=== PATIENT | male | born 1990 | race Caucasian/White ===

== ENCOUNTER 2019-07-25 04:47 | Emergency (ER) | payer OTHER ==
[~2019-07-25] VITALS: Ht 175.3 cm; Wt 93.0 kg
[2019-07-25 04:53] VITALS: Ht 175.3 cm; Wt 93.0 kg
[2019-07-25 05:14] VITALS: BP 123/83
== END 2019-07-25 05:14 | disposition home or self-care (01) ==
LOC: ED 04:47
DX: Z02.89 Encounter for other administrative examinations (principal)